=== PATIENT | male | born 2000 | race Two or more races ===

== ENCOUNTER 2021-02-18 20:53 | Emergency (ER) | payer MEDICAID ==
[~2021-02-18] VITALS: Ht 177.8 cm; Wt 61.0 kg
[2021-02-19 00:38] VITALS: BP 121/79
[2021-02-19] MEDS ORDERED: DOCUSATE SODIUM 100MG CAPSULE PO ONE (00:45)
== END 2021-02-19 00:56 | disposition home or self-care (01) ==
LOC: ER 20:53
DX: K59.00 Constipation, unspecified (principal); K92.2 Gastrointestinal hemorrhage, unspecified
CPT/HCPCS: 99282